=== PATIENT | male | born 1975 | race Caucasian/White ===

== ENCOUNTER 2018-02-23 16:05 | Emergency (ER) | payer OTHER ==
[~2018-02-23] VITALS: Ht 175.3 cm; Wt 78.2 kg
[2018-02-23 16:09] VITALS: Ht 175.3 cm; Wt 78.2 kg
[2018-02-23 16:39] LABS: APPEARANCE CLEAR (CLEAR); BILIRUBIN NEGATIVE (NEGATIVE); COLOR YELLOW (YELLOW); GLUCOSE NEGATIVE (NEGATIVE); KETONE NEGATIVE (NEGATIVE); NITRITE NEGATIVE (NEGATIVE); PROTEIN NEGATIVE (NEGATIVE); SPECIFIC GRAVITY 1.015 (1.005-1.020); UROBILINOGEN NORMAL (NORMAL)
[2018-02-23 17:40] VITALS: BP 122/79
== END 2018-02-23 18:52 | disposition home or self-care (01) ==
LOC: D.ER 16:05
PROVIDERS: Emergency Medicine
DX: N50.811 Right testicular pain (principal); N50.3 Cyst of epididymis